=== PATIENT | male | born 1970 | race Caucasian/White ===

== ENCOUNTER → 2016-08-03 | Outpatient (CLI) | payer OTHER ==
[~2016-08-03] MED LIST: ASPIRIN325 M1 PO; ASPIRIN81 M2 PO; BACTRIM DS TABL1 TA1 PO; BACTRIM DS TABL1 TA2 PO; BACTRIM DS TABL1 TAB PO; BAYER ASPIRIN325 M1 PO; CARVEDILOL12.5 MG PO; CIPRO PO; CLEOCIN HCL300 M1 PO; COREG12.5 MG PO; DAKIN'S MODIF1000 ML EXT; DOXYCYCLINE MO100 MG PO; FENOFIBRATE160 MG PO; FUROSEMIDE40 MG PO; IMDUR PO; IMDUR-ER30 MG DOB; INVOKANA100 MG PO; JANUVIA PO; KEFLEX500 M1 PO; KEFLEX500 M2 PO; LASIX PO; LEXAPRO PO; LIPITOR40 MG PO; LISINOPRIL10 MG PO; LISINOPRIL20 MG PO; LYRICA75 MG PO; METFORMIN HCL500 M1 PO; NITROGLYGERIN0.4 MG SL; NO MEDICATIONS; NORCO 10/3251 TAB DOB; NORCO 5/325 TAB1 TAB PO; OMEGA 3 FISH OI1 CAP PO; OMEPRAZOLE40 M1 PO; PLAVIX PO; PRAVASTATIN SOD40 MG PO; TRAMADOL HCL50 M1 PO; TYLENOL #3 PO; TYLENOL325 M1 PO; TYLOX 5/500 CAP1 CAP PO; ZESTRIL5 MG PO; ZOCOR PO
== END | disposition home or self-care (01) ==
LOC: CRC 10:07
DX: J44.1 Chronic obstructive pulmonary disease with (acute) exacerbation (principal); R06.02 Shortness of breath; R05 Cough; G47.33 Obstructive sleep apnea (adult) (pediatric)
CPT/HCPCS: 94060; 94726; 94729